=== PATIENT | female | born 1970 | race Caucasian/White ===

== ENCOUNTER 2016-04-06 08:04 | Outpatient (CLI) | payer BC ==
[2016-04-06 08:52] LABS: BASOPHILS % (AUTO) 0.5 % (0.0-2.0); DIFF TOTAL % 100 %; EOSINOPHILS # (AUTO) 0.2 /CMM (0.0-0.7); EOSINOPHILS % (AUTO) 4.7 % (0.0-6.0); HEMATOCRIT 43 % (33-45); HEMOGLOBIN 14.6 g/dL (11.5-14.8); LYMPHOCYTES # (AUTO) 1.2 /CMM (0.8-4.8); LYMPHOCYTES % (AUTO) 23.5 % (20.0-44.0); MEAN CORPUSCULAR HEMOGLOBIN 30 PG (26.0-33.0); MEAN CORPUSCULAR HGB CONC 34 g/dl (31.0-36.0); MEAN CORPUSCULAR VOLUME 88 fL (82-100); MONOCYTES # (AUTO) 0.4 /CMM (0.1-1.30); MONOCYTES % (AUTO) 7.6 % (2.0-12.0); NEUTROPHILS # (AUTO) 3.2 /CMM (1.8-8.9); NEUTROPHILS % (AUTO) 63.7 % (43.0-81.0); PLATELET COUNT (AUTO) 242 /CMM (150-450); RED BLOOD CELL COUNT(AUTO) 4.85 MIL/uL (4.0-5.2); WHITE BLOOD COUNT (AUTO) 5.1 K/uL (4.3-11.0)
[2016-04-06 09:08] LABS: ADD UA MICROSCOPIC NO; KETONES,URINE NEGATIVE (NEGATIVE); LEUKOCYTE ESTERASE ,URINE NEGATIVE (NEGATIVE); PH,URINE 5.5 (5.0-8.0)
[2016-04-06 09:20] LABS: ALBUMIN 4.1 g/dL (3.4-5.0); BILIRUBIN,TOTAL 0.5 mg/dL (0.2-1.0); CALCIUM, SERUM 9.1 mg/dL (8.5-10.1); CREATININE 0.7 mg/dL (0.6-1.3); POTASSIUM 4.2 mmol/L (3.5-5.1); TOTAL PROTEIN, SERUM 7.7 g/dL (6.4-8.2)
[2016-04-06 09:25] LABS: THYROID STIMULATING HORMONE 1.935 uIU/mL (0.358-3.74)
== END 2016-04-06 23:59 | disposition home or self-care (01) ==
LOC: LAB 08:04
PROVIDERS: ATTEND Family Medicine
DX: Z00.01 Encounter for general adult medical examination with abnormal findings (principal)
CPT/HCPCS: 36415; 80053-TC; 80061-TC; 81000-TC; 82306; 84436-TC; 84443-TC; 85025-TC

== ENCOUNTER 2017-10-29 10:05 | Outpatient (CLI) | payer BC ==
[2017-10-29 11:25] LABS: BASOPHILS % (AUTO) 0.6 % (0.0-2.0); EOSINOPHILS % (AUTO) 3.3 % (0.0-6.0); HEMATOCRIT 41 % (33-45); HEMOGLOBIN 13.4 g/dL (11.5-14.8); LYMPHOCYTES # (AUTO) 1.1 /CMM (0.8-4.8); LYMPHOCYTES % (AUTO) 20.8 % (20.0-44.0); MEAN CORPUSCULAR HEMOGLOBIN 30 PG (26.0-33.0); MEAN CORPUSCULAR HGB CONC 33 g/dl (31.0-36.0); MEAN CORPUSCULAR VOLUME 90 fL (82-100); MONOCYTES # (AUTO) 0.3 /CMM (0.1-1.30); MONOCYTES % (AUTO) 5.4 % (2.0-12.0); NEUTROPHILS # (AUTO) 3.8 /CMM (1.8-8.9); NEUTROPHILS % (AUTO) 69.9 % (43.0-81.0); PLATELET COUNT (AUTO) 247 /CMM (150-450); RDW COEFFICIENT OF VARIATION 12.9 (11.5-15.0); RED BLOOD CELL COUNT(AUTO) 4.51 MIL/uL (4.0-5.2); WHITE BLOOD COUNT (AUTO) 5.4 K/uL (4.3-11.0)
[2017-10-29 11:52] LABS: FREE T4 (FREE THYROXINE) 1.01 ng/dL (0.76-1.46); THYROID STIMULATING HORMONE 1.88 uIU/mL (0.358-3.74)
[2017-10-29 11:58] LABS: ALBUMIN 3.8 g/dL (3.4-5.0); BILIRUBIN,TOTAL 0.7 mg/dL (0.2-1.0); CALCIUM, SERUM 9.1 mg/dL (8.5-10.1); CREATININE 0.6 mg/dL (0.6-1.3); POTASSIUM 3.8 mmol/L (3.5-5.1); TOTAL PROTEIN, SERUM 7.5 g/dL (6.4-8.2)
[2017-10-30 08:09] LABS: T3 TOTAL 110 ng/dL (71-180); THYROID PEROXIDASE (TPO) AB 12 IU/mL (0-34)
== END 2017-10-29 23:59 | disposition home or self-care (01) ==
LOC: LAB 10:05
PROVIDERS: ATTEND Family Medicine
DX: E04.1 Nontoxic single thyroid nodule (principal)
CPT/HCPCS: 36415; 80053-TC; 84439-TC; 84443-TC; 84480; 85025-TC; 86376

== ENCOUNTER 2017-10-30 10:56 | Outpatient (CLI) | payer BC | END 2017-10-30 23:59 | disposition home or self-care (01) | LOC: US 10:56 | PROVIDERS: ATTEND Family Medicine | DX: E04.1 Nontoxic single thyroid nodule (principal) | CPT/HCPCS: 76536-TC ==

== ENCOUNTER 2017-11-20 08:57 | Outpatient (CLI) | payer BC | END 2017-11-20 23:59 | disposition home or self-care (01) | LOC: NM 08:57 | PROVIDERS: ATTEND Family Medicine | DX: E04.2 Nontoxic multinodular goiter (principal) | CPT/HCPCS: 78014; A9516 ==

== ENCOUNTER 2018-07-16 10:08 | Outpatient (CLI) | payer BC | END 2018-07-16 23:59 | disposition home or self-care (01) | LOC: US 10:08 | PROVIDERS: ATTEND Family Medicine | DX: E04.2 Nontoxic multinodular goiter (principal) | CPT/HCPCS: 76536-TC ==

== ENCOUNTER 2018-07-18 09:52 | Outpatient (CLI) ==
[2018-07-18 10:43] LABS: BASOPHILS % (AUTO) 0.7 % (0.0-2.0); EOSINOPHILS % (AUTO) 4.3 % (0.0-6.0); HEMATOCRIT 43 % (33-45); HEMOGLOBIN 14.5 g/dL (11.5-14.8); MEAN CORPUSCULAR HGB CONC 34 g/dl (31.0-36.0); MEAN CORPUSCULAR VOLUME 89 fL (82-100); MONOCYTES # (AUTO) 0.3 /CMM (0.1-1.30); MONOCYTES % (AUTO) 7.3 % (2.0-12.0); NEUTROPHILS % (AUTO) 66.7 % (43.0-81.0); PLATELET COUNT (AUTO) 254 /CMM (150-450); RED BLOOD CELL COUNT(AUTO) 4.76 MIL/uL (4.0-5.2); WHITE BLOOD COUNT (AUTO) 4.6 K/uL (4.3-11.0)
[2018-07-18 10:48] LABS: APPEARANCE,URINE CLEAR (CLEAR); BILIRUBIN,URINE NEGATIVE (NEGATIVE); BLOOD, URINE 1+ Ery/uL (NEGATIVE); COLOR,URINE YELLOW (YELLOW); KETONES,URINE NEGATIVE (NEGATIVE); LEUKOCYTE ESTERASE ,URINE NEGATIVE (NEGATIVE); NITRITE, URINE NEGATIVE (NEGATIVE); PH,URINE 7.5 (5.0-8.0); PROTEIN,URINE NEGATIVE (NEGATIVE); UGLUCOSE NEGATIVE (NEGATIVE); UROBILINOGEN,URINE 0.2 EU/dL (0.2)
[2018-07-18 10:51] LABS: BACTERIA,URINE 0 /HPF (None Seen); SQUAMOUS EPITHELIAL CELL,UR Few /HPF (None Seen); WBC,URINE 0-2 /HPF (0-3)
[2018-07-18 11:14] LABS: ALBUMIN 4.1 g/dL (3.4-5.0); BILIRUBIN,TOTAL 0.8 mg/dL (0.2-1.0); CALCIUM, SERUM 9.3 mg/dL (8.5-10.1); CREATININE 0.6 mg/dL (0.6-1.3); POTASSIUM 4.1 mmol/L (3.5-5.1); TOTAL PROTEIN, SERUM 7.7 g/dL (6.4-8.2)
[2018-07-18 11:23] LABS: THYROID STIMULATING HORMONE 1.783 uIU/mL (0.358-3.74)
[2018-07-19 12:08] LABS: THYROID PEROXIDASE (TPO) AB 8 IU/mL (0-34)
== END 2018-07-18 23:59 | disposition home or self-care (01) ==
LOC: LAB 09:52
PROVIDERS: ATTEND Family Medicine
DX: Z00.01 Encounter for general adult medical examination with abnormal findings (principal); E04.1 Nontoxic single thyroid nodule
CPT/HCPCS: 36415; 80053-TC; 80061-TC; 81000-TC; 84439-TC; 84443-TC; 85025-TC; 86376; 86800

== ENCOUNTER 2018-10-09 10:06 | Outpatient (CLI) | payer BC | END 2018-10-09 23:59 | disposition home or self-care (01) | LOC: US 10:06 | PROVIDERS: ATTEND Family Medicine | DX: E04.2 Nontoxic multinodular goiter (principal) | CPT/HCPCS: 76536-TC ==

== ENCOUNTER 2019-05-21 13:32 | Emergency (ER) | payer BC, OTHER ==
[~2019-05-21] VITALS: Ht 162.6 cm; Wt 70.8 kg
--- NOTE | 2019-05-21 13:39 | NUR ---
CAME IN TO BE TESTED FOR COVID-19, FEVER X 3 DAYS A WEEK AGO AND COUGH THAT PERSISTED UP TO NOW. AFEBRILE ON ASSESSMENT. REPORTS HAVING SICK FAMILY MEMBER AT HOME. DENIES SOB, DENIES PAIN. NO ACUTE DISTRESS NOTED. MADE COMFORTABLE AND READY FOR EVAL.
--- NOTE | 2019-05-21 14:35 | NUR ---
COVID SWAB SENT TO MAIN LAB
--- NOTE | 2019-05-21 14:45 | NUR ---
Patient discharged to home in stable condition. Written and verbal after care instructions given. Patient verbalizes understanding of instruction.
[2019-05-21 15:04] VITALS: BP 139/75
== END 2019-05-21 14:45 | disposition home or self-care (01) ==
LOC: ER 13:33
DX: B97.29 Other coronavirus as the cause of diseases classified elsewhere (principal); J06.9 Acute upper respiratory infection, unspecified
CPT/HCPCS: 36415; U0002

== ENCOUNTER 2019-06-13 15:29 | Emergency (ER) | payer BC, OTHER ==
[~2019-06-13] VITALS: Ht 167.6 cm; Wt 70.8 kg
[2019-06-13 15:39] VITALS: BP 117/53
--- NOTE | 2019-06-13 16:24 | NUR ---
Patient discharged to home in stable condition. Written and verbal after care instructions given. Patient verbalizes understanding of instruction.
== END 2019-06-13 16:23 | disposition home or self-care (01) ==
LOC: ER 15:30
DX: Z02.89 Encounter for other administrative examinations (principal); U07.1 COVID-19

== ENCOUNTER 2019-07-30 08:01 | Outpatient (CLI) | payer BC, OTHER ==
[2019-07-30 09:01] LABS: BASOPHILS % (AUTO) 0.7 % (0.0-2.0); EOSINOPHILS % (AUTO) 4.6 % (0.0-6.0); HEMATOCRIT 43 % (33-45); HEMOGLOBIN 13.9 g/dL (11.5-14.8); LYMPHOCYTES # (AUTO) 1.2 /CMM (0.8-4.8); LYMPHOCYTES % (AUTO) 25.7 % (20.0-44.0); MEAN CORPUSCULAR HGB CONC 33 g/dl (31.0-36.0); MEAN CORPUSCULAR VOLUME 90 fL (82-100); MONOCYTES # (AUTO) 0.4 /CMM (0.1-1.30); MONOCYTES % (AUTO) 8.3 % (2.0-12.0); NEUTROPHILS # (AUTO) 2.9 /CMM (1.8-8.9); NEUTROPHILS % (AUTO) 60.7 % (43.0-81.0); PLATELET COUNT (AUTO) 247 /CMM (150-450); RED BLOOD CELL COUNT(AUTO) 4.78 MIL/uL (4.0-5.2); WHITE BLOOD COUNT (AUTO) 4.8 K/uL (4.3-11.0)
[2019-07-30 09:08] LABS: APPEARANCE,URINE CLEAR (CLEAR); BILIRUBIN,URINE NEGATIVE (NEGATIVE); BLOOD, URINE NEGATIVE Ery/uL (NEGATIVE); COLOR,URINE YELLOW (YELLOW); KETONES,URINE NEGATIVE (NEGATIVE); LEUKOCYTE ESTERASE ,URINE NEGATIVE (NEGATIVE); NITRITE, URINE NEGATIVE (NEGATIVE); PROTEIN,URINE NEGATIVE (NEGATIVE); UGLUCOSE NEGATIVE (NEGATIVE); UROBILINOGEN,URINE 0.2 EU/dL (0.2)
[2019-07-30 09:18] LABS: ALBUMIN 4.1 g/dL (3.4-5.0); BILIRUBIN,TOTAL 0.7 mg/dL (0.2-1.0); CREATININE 0.8 mg/dL (0.6-1.3); POTASSIUM 3.6 mmol/L (3.5-5.1); TOTAL PROTEIN, SERUM 7.8 g/dL (6.4-8.2)
[2019-07-30 09:28] LABS: T4 (THYROXINE) 7.1 ug/dL (4.7-13.3); THYROID STIMULATING HORMONE 2.832 uIU/mL (0.358-3.74)
[2019-07-31 05:08] LABS: THYROID PEROXIDASE (TPO) AB 11 IU/mL (0-34)
== END 2019-07-30 23:59 | disposition home or self-care (01) ==
LOC: LAB 08:01
PROVIDERS: ATTEND Family Medicine
DX: E55.9 Vitamin D deficiency, unspecified (principal); E04.1 Nontoxic single thyroid nodule; R10.2 Pelvic and perineal pain; Z12.31 Encounter for screening mammogram for malignant neoplasm of breast; Z00.01 Encounter for general adult medical examination with abnormal findings; Z83.3 Family history of diabetes mellitus
CPT/HCPCS: 36415; 76536-TC; 76856-TC; 80053-TC; 80061-TC; 81000-TC; 82306; 84436-TC; 84439-TC; 84443-TC; 85025-TC; 86376; 86800

== ENCOUNTER 2019-08-19 10:38 | Outpatient (CLI) | payer BC, OTHER | END 2019-08-19 23:59 | disposition home or self-care (01) | LOC: LAB 10:38 | PROVIDERS: ATTEND Family Medicine | DX: Z01.84 Encounter for antibody response examination (principal) | CPT/HCPCS: 36415 ==

== ENCOUNTER 2020-04-27 13:25 | Outpatient (CLI) | payer BC, OTHER | END 2020-04-27 23:59 | disposition home or self-care (01) | LOC: US 13:25 | PROVIDERS: ATTEND Family Medicine | DX: E04.2 Nontoxic multinodular goiter (principal) | CPT/HCPCS: 76536-TC ==

== ENCOUNTER 2020-05-02 08:20 | Outpatient (CLI) | payer BC, OTHER ==
[2020-05-02 09:12] LABS: BASOPHILS % (AUTO) 0.7 % (0.0-2.0); EOSINOPHILS % (AUTO) 2.4 % (0.0-6.0); HEMATOCRIT 40 % (33-45); HEMOGLOBIN 13.2 g/dL (11.5-14.8); LYMPHOCYTES % (AUTO) 19.9 % (20.0-44.0); MEAN CORPUSCULAR HGB CONC 33 g/dl (31.0-36.0); MEAN CORPUSCULAR VOLUME 89 fL (82-100); MONOCYTES # (AUTO) 0.4 /CMM (0.1-1.30); MONOCYTES % (AUTO) 7.8 % (2.0-12.0); NEUTROPHILS # (AUTO) 3.5 /CMM (1.8-8.9); NEUTROPHILS % (AUTO) 69.2 % (43.0-81.0); PLATELET COUNT (AUTO) 266 /CMM (150-450); RED BLOOD CELL COUNT(AUTO) 4.51 MIL/uL (4.0-5.2)
[2020-05-02 09:51] LABS: BILIRUBIN,TOTAL 0.7 mg/dL (0.2-1.0); CALCIUM, SERUM 9.3 mg/dL (8.5-10.1); CREATININE 0.8 mg/dL (0.6-1.3); POTASSIUM 3.9 mmol/L (3.5-5.1); TOTAL PROTEIN, SERUM 7.8 g/dL (6.4-8.2)
[2020-05-02 09:58] LABS: FREE T4 (FREE THYROXINE) 0.96 ng/dL (0.76-1.46); THYROID STIMULATING HORMONE 2.768 uIU/mL (0.358-3.74)
[2020-05-03 08:07] LABS: THYROID PEROXIDASE (TPO) AB <9 IU/mL (0-34)
== END 2020-05-02 23:59 | disposition home or self-care (01) ==
LOC: LAB 08:20
PROVIDERS: ATTEND Family Medicine
DX: E55.9 Vitamin D deficiency, unspecified (principal); E04.1 Nontoxic single thyroid nodule
CPT/HCPCS: 36415; 80053-TC; 80061-TC; 82306; 84439-TC; 84443-TC; 85025-TC; 86376; 86800

== ENCOUNTER 2020-10-28 10:12 | Emergency (ER) | payer BC, OTHER ==
[~2020-10-28] VITALS: Ht 167.6 cm; Wt 70.3 kg
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
[2020-10-28] MEDS ORDERED: RABIES VACCINE (PCEC)/PF 1 EA KIT IM ONE ×2 (10:52→11:00)
[2020-10-28 11:14] VITALS: BP 109/63
--- NOTE | 2020-10-28 11:14 | NUR ---
Patient discharged to home in stable condition. Written and verbal after care instructions given. Patient verbalizes understanding of instruction.
== END 2020-10-28 11:15 | disposition home or self-care (01) ==
LOC: EDUNIT# 10:12 → ER 10:15
DX: Z23 Encounter for immunization (principal)

== ENCOUNTER 2021-05-15 13:54 | Outpatient (CLI) | payer BC, OTHER | END 2021-05-15 23:59 | disposition home or self-care (01) | LOC: US 13:54 | PROVIDERS: ATTEND Family Medicine | DX: E04.2 Nontoxic multinodular goiter (principal) | CPT/HCPCS: 76536-TC ==

== ENCOUNTER → 2022-05-18 | Outpatient (CLI) | payer BC, OTHER | END | disposition home or self-care (01) | LOC: US 14:46 | PROVIDERS: ATTEND Family Medicine | DX: E04.1 Nontoxic single thyroid nodule (principal) | CPT/HCPCS: 76536-TC ==

== ENCOUNTER 2022-06-15 08:11 | Outpatient (CLI) | payer BC, OTHER ==
[2022-06-15 09:54] LABS: ALBUMIN 4.1 g/dL (3.4-5.0); BILIRUBIN,TOTAL 0.5 mg/dL (0.2-1.0); CALCIUM, SERUM 9.4 mg/dL (8.5-10.1); CREATININE 0.7 mg/dL (0.6-1.3); EOSINOPHILS % (AUTO) 4.6 % (0.0-6.0); HEMATOCRIT 39 % (33-45); HEMOGLOBIN 12.9 g/dL (11.5-14.8); LYMPHOCYTES # (AUTO) 1.1 K/uL (0.8-4.8); LYMPHOCYTES % (AUTO) 24.4 % (20.0-44.0); MEAN CORPUSCULAR HGB CONC 33 g/dl (31.0-36.0); MEAN CORPUSCULAR VOLUME 87 fL (82-100); MONOCYTES # (AUTO) 0.4 K/uL (0.1-1.30); MONOCYTES % (AUTO) 9.2 % (2.0-12.0); NEUTROPHILS # (AUTO) 2.8 K/uL (1.8-8.9); NEUTROPHILS % (AUTO) 60.8 % (43.0-81.0); PLATELET COUNT (AUTO) 247 K/uL (150-450); POTASSIUM 3.7 mmol/L (3.5-5.1); RED BLOOD CELL COUNT(AUTO) 4.51 MIL/uL (4.0-5.2); TOTAL PROTEIN, SERUM 7.6 g/dL (6.4-8.2); WHITE BLOOD COUNT (AUTO) 4.7 K/uL (4.3-11.0)
[2022-06-15 10:05] LABS: THYROID STIMULATING HORMONE 2.394 uIU/mL (0.358-3.74)
== END 2022-06-15 23:59 | disposition home or self-care (01) ==
LOC: LAB 08:11
PROVIDERS: ATTEND Family Medicine
DX: Z00.01 Encounter for general adult medical examination with abnormal findings (principal); R79.9 Abnormal finding of blood chemistry, unspecified
CPT/HCPCS: 36415; 80053-TC; 80061-TC; 82306; 82728-TC; 83540-TC; 84443-TC; 84481; 85025-TC

== ENCOUNTER 2023-01-27 15:23 | Emergency (ER) | payer BC, OTHER ==
[~2023-01-27] VITALS: Ht 167.6 cm; Wt 70.3 kg
[2023-01-27 15:37] VITALS: TEMP 98.7
[2023-01-27 17:49] VITALS: BP 149/66; O2SAT 100
[2023-01-29 14:07] LABS: HEPATITIS B SURFACE AB Reactive (.)
== END 2023-01-27 17:49 | disposition home or self-care (01) ==
LOC: ER 15:48
DX: S61.230A Puncture wound without foreign body of right index finger without damage to nail, initial encounter (principal); W46.1XXA Contact with contaminated hypodermic needle, initial encounter; Y93.89 Activity, other specified; Y92.89 Other specified places as the place of occurrence of the external cause; Y99.0 Civilian activity done for income or pay
CPT/HCPCS: 86706; 86803; 87340; 87806